=== PATIENT | male | born 1980 ===

== ENCOUNTER 2022-02-15 17:40 | Observation (INO) | payer OTHER, SELFPAY ==
[2022-02-15] VITALS (43 sets, daily range): BP systolic 105–169; BP diastolic 76–123; PULSE 75–131; RESP 11–30; TEMP 36.6; O2SAT 95–100
--- NOTE | ~2022-02-15 | XR_ITS ---
EXAMINATION: XR surgery orthopedic DATE: 02/16/2022 20:43 INDICATION: Trimalleolar ankle fracture. TECHNIQUE: 5 intraoperative fluoroscopic views of left ankle were obtained. I was not present. Fluoro scopy exposure time was 28 seconds. COMPARISON: Left ankle radiographs 02/15/2022 FINDINGS: There is an oblique fracture of distal fibula status post open reduction internal fixation with plate and screws. There is a lag screw in medial malleolus. Again seen is a fracture of posterio r malleolus in near-anatomic alignment. IMPRESSION: 1. Trimalleolar ankle fracture status post open reduction internal fixation. Reviewed, dictated and finalized at location A. KITTER
--- NOTE | ~2022-02-15 | XR_ITS ---
EXAM: XR ankle LT 2V DATE: 02/15/2022 20:29 HISTORY: post reduction . COMPARISON: Same date at 6:02 PM. FINDINGS/IMPRESSION: Improved alignment of the tibiotalar dislocation with only mild residual medial joint space widening. Near-anatomic alignment of the distal fibular and medial malleolar fractures. L ikely posterior malleolar fracture which was not evident in the prior study, making this a trimalleol ar fracture. Reviewed, dictated and finalized at location K. LEDGE MANAGEMENT ADVISOR
--- NOTE | ~2022-02-15 | XR_ITS ---
CORRECTED REPORT This report was recreated on 02/16/2022. Original report was ROAD SIGNAL OPERATOR. 02/16/2022 sef Changed to XR ankle LT 2V EXAM: XR ankle LT 2V DATE: 02/15/2022 18:06 HISTORY: left ankle deformity, DROPPED 11,000LB MACHINE ON ANKLE . COMPARISON: None available. FINDINGS: Transverse distracted and posteriorly displaced medial malleolar fracture. Oblique distal left fibular fracture roughly at the level of the joint line, with lateral and posterior angulation. One half shaft width lateral and posterior dislocation of the talus relative to the tibial plafond. Achilles and plantar enthesopathy. IMPRESSION: Displaced/angulated bimalleolar left ankle fractures with tibiotalar dislocation. Reviewed, dictated and finalized at location K. ROAD SIGNAL OPERATOR MTDD IMPRESSION: Displaced/angulated bimalleolar left ankle fractures with tibiotala r dislocation.
--- NOTE | 2022-02-15 18:39 | ED.LOWEXIN ---
HPI - Extremity Injury (Lower) General Chief Complaint: Extremity Injury, Lower Stated Complaint: L ANKLE DEFORMITY Time Seen by Provider: 02/15/22 18:01 History of Present Illness HPI Narrative: Pt is a 41 yo M presenting with a left ankle injury. 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 Pt accidentally rolled over his left foot with the sprayer with immediate deformity to left ankle. Pt admits to having several beers this afternoon. Denies striking his head or further injury. Denies numbness. Related Data Allergies Allergy/AdvReac Type Severity Reaction Status Date / Time No Known Allergies Allergy Verified 02/22/22 10:04 Review of Systems Review of Systems: All systems reviewed & are unremarkable except as noted in HPI and below PMFSH Past Medical History Medical History Closed trimalleolar fracture of left ankle Family History Family History Sibling Asthma Social History Social History Smoking packs per day: 1 Smoking cigarettes per day: 20.0 Years smoked: 25 Smoking pack-years: 25.00 Smoking status: Heavy tobacco smoker Tobacco type: cigarettes Second hand tobacco smoke exposure: No Alcohol intake: current Substance use: current Substance use type: marijuana Lack of Transportation: No Lack of Food: Never True Current Housing: I Have Housing Concerned About Future Housing: No Difficulty Paying Gas/Electric Bills: No Difficulty Paying for Meds: No Currently Unemployed: No Education: High School Diploma/GED Difficulty w/ Childcare or Family Care: No Spiritual care concerns: No Exam Narrative: GENERAL: Intoxicated male, cooperative HEAD: Normocephalic, atraumatic. EYES: PERRLA and EOMI. ENT: Nares clear, no rhinorrhea or epistaxis. Mucous membranes moist. NECK: Supple. CHEST: Clear to auscultation. No respiratory distress. HEART: Regular rate and rhythm. No murmur heard. Normal peripheral pulses. ABDOMEN: Soft, nontender, nondistended, normal active bowel sounds. EXTREMITIES: Obvious deformity of the left ankle, DP and PT pulses are 2+, no sensory deficits SKIN: Warm, dry, no rash. NEURO: No focal deficits. Alert and oriented x3. PSYCH: Normal mood and affect. Course Vital Signs Vital signs: Vital Signs Pulse Rate 96 02/15/22 17:52 Respiratory Rate 14 02/15/22 17:52 Blood Pressure 136/87 02/15/22 17:52 Pulse Oximetry 98 02/15/22 17:52 Temperature 97.8 F 02/17/22 10:00 Pulse Rate 98 02/17/22 10:00 Respiratory Rate 18 02/17/22 10:00 Blood Pressure 144/88 H 02/17/22 10:00 Pulse Oximetry 98 02/17/22 10:00 Oxygen Delivery Room Air 02/17/22 08:49 Oxygen Flow Rate 8 02/16/22 21:15 Procedures Orthopedic Joint Reduction Joint #1: Orthopedic Joint Reduction Date: 02/15/22 Side: left Joint Reduction Location: ankle Analgesia: procedural sedation Pre-Procedure Neuro Vascular Exam: normal Technique used: traction/counter-traction and direct manipulation Post-reduction neuro exam: intact Post-reduction vascular: intact Post Reduction X-Ray Obtained: Yes Post Reduction X-Ray Results: reduced Splint Applied: Yes Patient Tolerated Procedure: well Additional Comments: Fracture/joint reduction of unstable trimalleolar fx with posterior tibiotalar dislocation. Neurovascularly intact s/p reduction, splint applied. Tolerated without complication. Procedural Sedation Procedural Sedation #1: Procedural Sedation Date: 02/15/22 Provider Performed: sedation and procedure Informed Consent Obtained: yes Equipment in Room: bag and mask, capnography, property assessment monitor, crash cart, oxygen, pulse oximeter and suction Plan for Sedation:
[2022-02-15 18:52] LABS: Basophils Percent Auto 0.6 % (0.2-1.2); Eosinophils Percent Auto 0.9 % (0-4.4); Hematocrit 40.8 % (42.0-52.0); Hemoglobin 13.7 g/dL (14.0-18.0); Immature Granulocyte Absolute 0.02 K/mm3 (0.00-0.031); Immature Granulocyte Percent A 0.6 % (0-0.5); Immature Platelet Fraction Pct 9.8 % (0.9-11.2); Lymphocytes Absolute Auto 2.04 K/mm3 (0.9-3.2); Mean Corpuscular HGB Conc 33.6 g/dl (32-36); Mean Corpuscular Hemoglobin 35.7 pg (26-34); Mean Corpuscular Volume 106.3 fl (80-100); Mean Platelet Volume 10.4 fl (7.4-10.4); Monocytes Absolute Auto 0.7 K/mm3 (0.1-0.6); Monocytes Percent Auto 19.4 % (2.6-8.5); Neutrophils Absolute Auto 0.6 K/mm3 (1.3-6.7); Neutrophils Percent Auto 18.5 % (45.5-73.1); Platelet Count Result 137 k/mm3 (150-375); Red Blood Count 3.84 M/mm3 (4.6-6.20); Red Cell Distribution Width 12.6 % (11.5-14.5); White Blood Count 3.4 K/mm3 (4.5-10.0)
[2022-02-15 19:03] LABS: Anion Gap 13 mmol/L (8-16); Blood Urea Nitrogen 9 mg/dL (9-20); Calcium 9.2 mg/dL (8.4-10.2); Carbon Dioxide 29 mmol/L (22-30); Chloride 101 mmol/L (98-107); Estimated CRCL calculation 98 ml/min; Estimated Glomerular Filt Rate > 60; Glucose 101 mg/dL (65-110); Potassium 3.9 mmol/L (3.4-5.0); Sodium 143 mmol/L (137-145)
[2022-02-15 19:05] LABS: Macrocytosis 1+ (NORMAL); Platelet Estimate Adequate (Adequate)
[2022-02-15 19:06] LABS: Atypical Lymphocytes Present; Ovalocytes 1+ (NORMAL); Schistocytes None Seen (NORMAL)
[2022-02-15 19:23] LABS: Ethanol 449 mg/dL (<10)
[2022-02-15] MEDS: KETAMINE HCL (*CRX) 500 MG/10 ML VIAL 100 MG IV PUSH (20:11)
--- NOTE | 2022-02-15 21:47 | PM.IMHP ---
H&P: HPI History of Present Illness Date/Time: 02/15/22 21:47 Chief Complaint: ANKLE PAIN Narrative: This is a 41-year-old male with past medical history significant for tobacco dependence, alcohol dependence, patient smokes 1 pack to pack and half a day, drinks a pt of vodka daily. Patient was at his job when he had a heavy object fall on his foot in emergency room patient was found to have left ankle fracture. Patient had his fracture reduced and is been placed in observation. Preliminary workup was significant for an alcohol level of 449, x-ray of the left ankle was reported as: FINDINGS:? Transverse distracted and posteriorly displaced medial malleolar fracture. Oblique distal left fibular fracture roughly at the level of the joint line, with lateral and posterior angulation. One half shaft width lateral and posterior dislocation of the talus relative to the tibial plafond. Achilles and plantar enthesopathy. IMPRESSION: Displaced/angulated bimalleolar left ankle fractures with tibiotalar dislocation. Review of Systems Review of Systems: Left ankle fracture Constitutional: Constitutional: Denies chills, Denies fever(s), Denies malaise, Denies night sweats, Denies poor appetite and Denies weakness Eyes: Eyes: Denies change in vision ENT: Denies dysphagia, Denies vertigo, Denies dizziness and Denies odynophagia Respiratory: Respiratory: Denies chest congestion, Denies cough, Denies dyspnea on exertion and Denies wheezing Gastrointestinal: Gastrointestinal: Denies abdominal pain, Denies dyspepsia, Denies heartburn, Denies diarrhea, Denies nausea and Denies vomiting Genitourinary: Genitourinary: Denies dysuria Musculoskeletal: Musculoskeletal: Reports abnormal gait, Reports deformity, Reports arthralgias, Reports joint swelling, Reports limited range of motion and Reports other (Left ankle) Integumentary/Breasts: Skin/Breast: Denies rash Neurologic: Denies vertigo, Denies dizziness, Denies focal weakness and Denies Sensory deficit (Neuro) Psychiatric: Psychiatric: Reports no additional psychiatric complaints, Reports as per HPI and Denies tactile hallucinations Endocrine: Endocrine: Denies cold intolerance, Denies fatigue, Denies flushing, Denies heat intolerance, Denies polyphagia, Denies polydipsia and Denies palpitations Hematologic/Lymphatic: Hematologic/Lymphatic: Reports no additional hematologic/lymphatic complaints and Reports as per HPI Allergic/Immunologic: Allergic/Immunologic: Reports no additional allergic/immunologic complaints and Reports as per HPI [facility] Social History Social History Smoking status: Current every day smoker Alcohol intake: current Meds Home Medications and Allergies Home Medications Medication Instructions Recorded Confirmed Type No Home Medications 02/16/22 02/16/22 History Allergies Allergy/AdvReac Type Severity Reaction Status Date / Time No Known Allergies Allergy Verified 02/15/22 21:04 Vital Signs Vital Signs - 24 hr 02/15/22 17:58 02/15/22 17:52 02/15/22 17:53 Temperature 97.8 F Pulse Rate 110 H 96 98 Pulse Rate [Right] Respiratory Rate 24 H 14 20 Blood Pressure 133/97 H 136/87 Blood Pressure [Right Arm] Pulse Oximetry 98 98 Oxygen Delivery Room Air Oxygen Flow Rate 02/15/22 18:00 02/15/22 20:12 02/15/22 20:16 Temperature Pulse Rate 99 Pulse Rate [Right] 130 H Respiratory Rate 16 12 17 Blood Pressure Blood Pressure [Right Arm] 125/105 H 118/89 Pulse Oximetry 98 100 98 Oxygen Delivery Nasal Cannula Nasal Cannula Oxygen Flow Rate 2 2 02/15/22 20:08 Temperature Pulse Rate Pulse Rate [Right] 87 Respiratory Rate 20 Blood Pressure Blood Pressure [Right Arm] Pulse Oximetry 100 Oxygen Delivery Room Air Oxygen Flow Rate Exam Narrative: Left leg cast in place Const: General: comfortable, no acute distress, well developed, alert, awake and average body habitus Nutritional Appearance: aver
[2022-02-15 23:19] LABS: Influenza A QL RT-PCR Negative (Negative); Influenza B QL RT-PCR Negative (Negative); RSV RNA, RT-PCR Negative (Negative); SARS-CoV-2 RNA PCR Negative
[2022-02-16] VITALS (26 sets, daily range): BP systolic 105–137; BP diastolic 63–88; PULSE 68–89; RESP 11–20; TEMP 36.2–38.1; O2SAT 95–100; BMI 21.8
[2022-02-16] MEDS: HYDROmorphone HCL INJ (*CRX) 1 MG/ML SYR IV PUSH ×5 (03:00→17:16)
[2022-02-16] MEDS: LORazepam INJ (*CRX) 2 MG/ML VIAL IV PUSH ×2 (03:06→18:13)
[2022-02-16] MEDS: THIAMINE HCL INJ 100 MG, FOLIC ACID INJ 1 MG, MULTIVITAMINS-12 INJ VIAL 1 5 ML, MULTIVI... 125 MG IV CONT (03:17)
--- NOTE | 2022-02-16 03:59 | PC.NURSE ---
Pt admitted to 324-2 via cart ( 0210) from ER after work related accident resulting in fx left tibia/ankle. 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 Pt was positive for etoh in symptom. Pt states drinks almost a fifth of vodka a day. Smokes cigarettes daily and weed occasionally. Hx of diverticulosis resulting in colostomy- 09/2017 then takedown 05/2018. Hx of suicide attempt 1 year ago. Went to rehab for etoh x1 sober x9 months Takes no meds. Lives with spouse in house. Pain 9/10 Anxious and restless. IVF started and given ativan and dilaudid NPO for surgery in am. Bed alarm on fall precautions
[2022-02-16] MEDS: chlordiazePOXIDE (*CRX) 25 MG CAPSULE 50 MG PO ×4 (05:58→23:59)
[2022-02-16] MEDS: ACETAMINOPHEN 500 MG TABLET 1000 MG PO ×2 (05:59→18:35)
--- NOTE | 2022-02-16 06:47 | PM.CNOR ---
Assessment and Plan Assessment and plan (1) Closed trimalleolar fracture of left ankle: Code(s): S82.852A - Displaced trimalleolar fracture of left lower leg, initial encounter for closed fracture Status: Acute Assessment and Plan: New patient evaluation for chief complaint left ankle injury. History, physical exam and radiographs reviewed with the patient. Left ankle trimalleolar fracture dislocation. Reduced and splinted in the emergency room. Post reduction radiographs show ankle well reduced. Discussed the condition, nature, etiology and course of natural history with the patient. Treatment options including surgical and nonoperative treatment were reviewed. Risks and benefits of each as well as alternatives reviewed. The patient's questions were answered. Conservative treatment ice, compression and elevation. Discussed surgical option when medically stable. Discussed nonoperative and operative treatment options with the patient. Risks and benefits of each as well as alternatives were reviewed. All of the patient's questions were answered. The risks of surgery reviewed including but not limited to: Neurovascular damage, wound complication, infection, blood clot, pulmonary embolus, stroke, myocardial infarction, and anesthetic risks up to and including . Continued pain and possible dysfunction were explained. Specific risks of the procedure including later recurrence of deformity. No guarantees were offered. If hardware used, discussed risk of failure/ breakage and possible need for removal. If complications occur, the patient understands the need for further treatment, possible further surgery. Patient verbalizes understanding and wishes to proceed. PLAN: Open reduction internal fixation left ankle fracture. History of Present Illness HPI Consult date: 02/16/22 Requesting physician: Emily Abbott MD Chief complaint: Left Ankle Fracture/Dislocation Narrative: 41-year-old male at work with injury when heavy object hit left ankle. Presented to emergency room with obvious deformity of the left ankle. Fracture dislocation noted on radiographs. Reduced and splinted in the emergency room and admitted for further care. No prior problems with the ankle. Review of Systems Constitutional: Constitutional: Denies fever(s) Eyes: Eyes: Denies blurry vision ENT: Reports Normal hearing present Cardiovascular: Cardiovascular: Denies chest pain and Denies dyspnea Respiratory: Respiratory: Denies dyspnea and Denies wheezing Gastrointestinal: Gastrointestinal: Denies abdominal pain Genitourinary: Genitourinary: Denies urinary urgency Musculoskeletal: Musculoskeletal: Reports as per HPI and Denies numbness Integumentary/Breasts: Skin/Breast: Denies changing lesions and Denies sores Neurologic: Reports Normal hearing present, Denies behavioral changes, Denies confusion, Denies numbness and Denies convulsions Psychiatric: Psychiatric: Denies behavioral changes, Denies confusion and Denies hallucinations Endocrine: Endocrine: Denies heat intolerance Hematologic/Lymphatic: Hematologic/Lymphatic: Denies easy bleeding Allergic/Immunologic: Allergic/Immunologic: Denies wheezing PMFSH Past Medical History Medical History (Updated 02/16/22 @ 06:49 by Reilly Gandhi MD) Closed trimalleolar fracture of left ankle Family History Family History Sibling Asthma Social History Social History Smoking packs per day: 1 Smoking cigarettes per day: 20.0 Years smoked: 25 Smoking pack-years: 25.00 Smoking status: Heavy tobacco smoker Tobacco type: cigarettes Second hand tobacco smoke exposure: No Alcohol intake: current Substance use: current Substance use type: marijuana Lack of Transportation: No Lack of Food: Never True Current Housing: I Have Housing Concer
[2022-02-16 07:07] LABS: Glucose Point of Care 96 mg/dl (65-105)
[2022-02-16 12:00] LABS: Glucose Point of Care 71 mg/dl (65-105)
--- NOTE | 2022-02-16 13:06 | PM.IMPN ---
Progress Note: A&P Assessment and Plan (1) Ankle fracture: Code(s): S82.899A - Other fracture of unspecified lower leg, initial encounter for closed fracture Status: Acute Assessment and Plan: Status post reduction Admit to regular medical floor Pain management Orthopedic surgery consult (2) Alcohol intoxication: Code(s): F10.929 - Alcohol use, unspecified with intoxication, unspecified Status: Acute Assessment and Plan: CIWA protocol as needed (3) Alcohol dependence: Code(s): F10.20 - Alcohol dependence, uncomplicated Status: Acute Assessment and Plan: CIWA protocol as needed (4) Tobacco dependence: Code(s): F17.200 - Nicotine dependence, unspecified, uncomplicated Status: Acute Assessment and Plan: Nicotine patch as needed Subjective Date/time seen: 02/16/22 13:06 No complaints Exam Narrative: Left leg cast in place Const: General: comfortable, no acute distress, well developed, alert, awake and average body habitus Nutritional Appearance: average body habitus Orientation/consciousness: patient oriented x3 HENMT: Head: normal to inspection, normocephalic and atraumatic Ears: hearing grossly normal bilaterally Face/Nose/Sinus: normal facial exam Face and sinus: normal facial exam Eyes: General: appearance normal, both eyes and all related structures Pupils: Equal, round and reactive pupils present EOM: EOMs intact bilaterally Neck: Neck: full ROM, no lymphadenopathy and no JVD Thyroid: thyroid normal Lymphatic: no lymphadenopathy noted Resp: Effort & Inspection: normal respiratory effort and able to speak in complete sentences Auscultation: clear to auscultation bilaterally Cardio: Jugular venous distension: no JVD Rate: regular rate Rhythm: regular rhythm Heart sounds: S1 normal heart sound present and S2 normal heart sound present : General: Yes deferred Skin: Rashes: no rashes Wounds: no wounds Neuro: General: patient oriented x3, CN's II-XI intact bilaterally and Unable to assess gait Cranial nerves: Yes CN's II-XII intact bilaterally and Yes Equal, round and reactive pupils present Cognition (Neuro): normal cognition Speech: normal speech Gait exam (Neuro): Unable to assess gait Motor exam (neuro): 5/5 motor strength present throughout Sensory Exam: No Sensory deficit (Neuro) Extrem: General: normal to inspection, full ROM, no joint enlargement and no pedal edema Objective Data Vital Signs Vital Signs: Vital Signs - 24 hr 02/15/22 17:58 02/15/22 17:52 02/15/22 17:53 Temperature 97.8 F Pulse Rate 110 H 96 98 Pulse Rate [Radial] Pulse Rate [Right] Respiratory Rate 24 H 14 20 Blood Pressure 133/97 H 136/87 Blood Pressure [Right Arm] Pulse Oximetry 98 98 Oxygen Delivery Room Air Oxygen Flow Rate 02/15/22 18:00 02/15/22 20:12 02/15/22 20:16 Temperature Pulse Rate 99 Pulse Rate [Radial] Pulse Rate [Right] 130 H Respiratory Rate 16 12 17 Blood Pressure Blood Pressure [Right Arm] 125/105 H 118/89 Pulse Oximetry 98 100 98 Oxygen Delivery Nasal Cannula Nasal Cannula Oxygen Flow Rate 2 2 02/15/22 20:08 02/15/22 19:14 02/15/22 19:15 Temperature Pulse Rate 96 98 Pulse Rate [Radial] Pulse Rate [Right] 87 Respiratory Rate 20 16 17 Blood Pressure Blood Pressure [Right Arm] Pulse Oximetry 100 100 Oxygen Delivery Room Air Oxygen Flow Rate 02/15/22 19:17 02/15/22 19:30 02/15/22 19:46 Temperature Pulse Rate 95 101 H 97 Pulse Rate [Radial] Pulse Rate [Right] Respiratory Rate 16 15 22 H Blood Pressure 138/84 Blood Pressure [Right Arm] Pulse Oximetry 97 99 Oxygen Delivery Oxygen Flow Rate 02/15/22 20:01 02/15/22 20:06 02/15/22 20:11 Temperature Pulse Rate 107 H 91 90 Pulse Rate [Radial] Pulse Rate [Right] Respiratory Rate 18 11 L 12 Blood Pressure 127/89 125/105 H Blood Pressure [Right Arm] Pul
--- NOTE | 2022-02-16 15:10 | WPDHPUPDATE1 ---
History and Physical Update Update Date/Time: 02/16/22 15:10 History and Physical has been reviewed, including an updated exam of the patient. There are NO changes in the patient's condition. Risks, benefits, and alternatives have been discussed and questions answered. Patient agrees to proceed with procedure.
[2022-02-16 17:50] LABS: Glucose Point of Care 79 mg/dl (65-105)
[2022-02-16] MEDS: LACTATED RINGERS 1,000 ML 30 ML IV CONT ×2 (18:30→20:48)
[2022-02-16] MEDS: KETOROLAC 15 MG/ML VIAL (*BKC) IV PUSH (18:35)
--- NOTE | 2022-02-16 18:53 | WPDANESEPPF ---
Anes - Initial Pre Proc Eval Procedure: Operation Date: 02/16/22 20:30 Proposed Procedures p Open Reduction Internal Fixation Left Ankle - Reilly Gandhi MD Date/Time: 02/16/22 18:53 Surgeon: Cheyanne Myers MD Pre Op Diagnosis: Left Ankle Fracture/Dislocation Patient Data Age: 41 Gender: M Height: 1.8 m Weight: 71 kg Last Vital Signs Temp 38.1 C H 02/16/22 18:30 Pulse 89 02/16/22 18:30 Resp 18 02/16/22 18:30 BP 137/83 02/16/22 18:30 Pulse Ox 98 02/16/22 18:30 O2 Del Method Room Air 02/16/22 18:30 O2 Flow Rate 1 02/15/22 20:26 Allergies Allergy/AdvReac Type Severity Reaction Status Date / Time No Known Allergies Allergy Verified 02/15/22 21:04 Home Medications Medication Instructions Recorded Confirmed Type No Home Medications 02/16/22 02/16/22 History Laboratory Tests 02/15/22 02/15/22 02/15/22 18:39 18:39 18:39 WBC 3.4 K/mm3 L K/mm3 (4.5-10.0) RBC 3.84 M/mm3 L M/mm3 (4.6-6.20) Hgb 13.7 g/dL L g/dL (14.0-18.0) Hct 40.8 % L % (42.0-52.0) MCV 106.3 fl H fl (80-100) MCH 35.7 pg H pg (26-34) MCHC 33.6 g/dl g/dl (32-36) RDW 12.6 % % (11.5-14.5) Plt Count 137 k/mm3 L k/mm3 (150-375) MPV 10.4 fl fl (7.4-10.4) Immature Gran % (Auto) 0.6 % H % (0-0.5) Neut % (Auto) 18.5 % L % (45.5-73.1) Lymph % (Auto) 60.0 % H % (18.3-44.2) Harmon % (Auto) 19.4 % H % (2.6-8.5) Eos % (Auto) 0.9 % % (0-4.4) Baso % (Auto) 0.6 % % (0.2-1.2) Lymph # (Auto) 2.04 K/mm3 K/mm3 (0.9-3.2) Harmon # (Auto) 0.7 K/mm3 H K/mm3 (0.1-0.6) Eos # (Auto) 0.0 K/mm3 K/mm3 (0-0.3) Baso # (Auto) 0.0 K/mm3 K/mm3 (0.0-0.1) Abs Immat Gran (auto) 0.02 K/mm3 K/mm3 (0.00-0.031) Absolute Neuts (auto) 0.6 K/mm3 L K/mm3 (1.3-6.7) Absolute Nucleated RBC 0.0 K/mm3 K/mm3 (0.0-0.012) Nucleated RBC % 0.0 % % (0.0-0.2) Atypical Lymphocytes Present Platelet Estimate Adequate (Adequate) % Immature Plt Fraction 9.8 % % (0.9-11.2) Macrocytosis 1+ (NORMAL) Ovalocytes 1+ (NORMAL) Schistocytes None seen (NORMAL) Sodium 143 mmol/L mmol/L (137-145) Potassium 3.9 mmol/L mmol/L (3.4-5.0) Chloride 101 mmol/L mmol/L (98-107) Carbon Dioxide 29 mmol/L mmol/L (22-30) Anion Gap 13 mmol/L mmol/L (8-16) BUN 9 mg/dL mg/dL (9-20) Creatinine 0.90 mg/dL mg/dL (0.7-1.3) Estim Creat Clear Calc 98 ml/min ml/min Estimated GFR > 60 (59 - ) Glucose 101 mg/dL mg/dL (65-110) POC Capillary Glucose Calcium 9.2 mg/dL mg/dL (8.4-10.2) Ethyl Alcohol 449 mg/dL H* mg/dL (<10) Influenza A (RT-PCR) Influenza B (RT-PCR) RSV (RT-PCR) SARS-CoV-2 RNA (RT-PCR) 02/15/22 02/16/22 02/16/22 22:38 07:04 11:49 WBC RBC Hgb Hct MCV MCH MCHC RDW Plt Count MPV Immature Gran % (Auto) Neut % (Auto) Lymph % (Auto) Harmon % (Auto) Eos % (Auto) Baso % (Auto) Lymph # (Auto) Harmon # (Auto) Eos # (Auto) Baso # (Auto) Abs Immat Gran (auto) Absolute Neuts (auto) Absolute Nucleated RBC Nucleated RBC % Atypical Lymphocytes Platelet Estimate % Immature Plt Fraction Macrocytosis Ovalocytes Schistocytes Sodium Potassium Chloride
[2022-02-16] MEDS: ceFAZolin 2 GM/D5W 50 ML 2 GM/50 ML BAG IVPB (19:33)
[2022-02-16] MEDS: BUPIVACAINE/EPINEPHRINE 0.5% 10 ML VIAL 30 ML INFILTRATE (19:55)
--- NOTE | 2022-02-16 20:59 | W.PM.PROC2 ---
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 Initially seen in the emergency room and underwent closed reduction and splinting. Fracture noted to be unstable. Patient presents for operative treatment. Received medical stabilization. Findings Medial lateral malleolus fractures with instability of ankle mortise. Posterior malleolus fracture, less than 15% of joint and stable. Description of Procedure After informed consent, the operative extremity was marked in the preoperative holding area. Patient received intravenous antibiotics. Patient was then taken to the operating room and underwent general anesthesia by the anesthesia team. Positioned supine on the operating room table with a soft bump under the ipsilateral hip. A time-out was performed confirming the patient, site of the surgery, operative plan. Lower extremity then prepped and draped in the usual sterile surgical fashion using ChloraPrep skin solution. Foot and ankle exsanguinated and a thigh tourniquet inflated to 250 mmHg. Longitudinal incision made over the lateral ankle distal fibula with a 15 blade knife. Hemostasis controlled with electrocautery. Full-thickness soft tissue flaps developed and the fascia was incised in line with the skin incision. Fracture identified and cleared with a dental pick, irrigation and rongeur. Fracture reduced and held with bone-holding clamp. Image intensification confirmed reduction of the fracture and the ankle mortise. Fixation achieved with a 3.5 millimeter fully-threaded cortical screw placed in lag technique across the fracture. Neutralization with a lateral plate with unicortical screws distal to fracture and bicortical screws proximal to the fracture. Good alignment and stability of the fracture noted. Image intensification used to confirm reduction of the fracture and placement of the hardware. Medial side then addressed. Longitudinal incision made with a 15 blade knife over the medial malleolus fracture. Hemostasis controlled with electrocautery. Fascia incised in line with skin incision. Periosteum cleared from the medial malleolus fracture. Medial side of the joint inspected and noted to have mild amount of trauma to the chondral surface. Thorough irrigation of the ankle joint and suctioned out. Fracture reduced and provisionally pinned. Fixation achieved with 4.0 mm partially threaded cancellous screw placed in cannulated screw fashion. Image intensification confirmed reduction of the fracture and placement of the hardware. Stress of the ankle performed with good stability of the ankle mortise in all directions. Posterior malleolus noted to be reduced and stable. Wounds thoroughly irrigated with antibiotic solution. Fascia repaired with 00 Vicryl interrupted suture. Subcutaneous tissue repaired with 000 Monocryl interrupted suture and skin approximated with milly. Sterile dressings applied followed by bulky dressing and splint. Patient awoken from anesthesia, extubated and taken to the recovery room in stable condition. All sponge, needle and instrument counts correct at the end of the case. Palpable dorsalis pedis pulse noted prior to dressing. Implants Arthrex distal fibula locking plate. 4.0 mm cannulated screw medially. Estimated Blood Loss 20 Tourniquet Time 60 Urine Output 300 Drains No Packing No Pathology None sent Complications None Condition Stable Disposition PACU [facility] Billing Surgery - Charge Forward: Surgery Billing ([id number])
--- NOTE | 2022-02-16 21:20 | SUR.PHASEI ---
2119: Simple mask removed.
--- NOTE | 2022-02-16 22:05 | PC.NURSE ---
back from surgery per bed to room 321-2
[2022-02-17] MEDS: KETOROLAC 15 MG/ML VIAL (*BKC) IM ×3 (00:01→12:39)
[2022-02-17 02:54] LABS: Glucose Point of Care 112 mg/dl (65-105)
[2022-02-17 03:41] VITALS: BP 153/80; PULSE 80; RESP 20; TEMP 36.4; O2SAT 98
[2022-02-17 05:18] VITALS: O2SAT 97
[2022-02-17] MEDS: chlordiazePOXIDE (*CRX) 25 MG CAPSULE 50 MG PO ×2 (05:55→12:39)
[2022-02-17] MEDS: polyethylene glycoL 3350 17 GM POWD.PACK PO (08:30)
[2022-02-17] MEDS: SENNA/DOCUSATE SODIUM TABLET 2 TAB PO (08:30)
[2022-02-17] MEDS: HYDROcodone/acetaminophen (*CRX) 7.5-325 MG TABLET 1 TAB PO (08:33)
--- NOTE | 2022-02-17 08:44 | PM.PNORT ---
Progress Note: A&P Assessment and Plan (1) Closed trimalleolar fracture of left ankle: Qualifiers: Encounter type: subsequent encounter Fracture healing: with routine healing Qualified Code(s): S82.852D - Displaced trimalleolar fracture of left lower leg, subsequent encounter for closed fracture with routine healing Code(s): S82.852A - Displaced trimalleolar fracture of left lower leg, initial encounter for closed fracture Status: Acute Assessment and Plan: Postoperative day 1 ORIF left ankle. Splint in place. Patient appears comfortable. PT/OT with nonweightbearing left leg. Pain control. Disposition home when medically stable. Follow up next week in Orthopedic office. Subjective Subjective Date/Time Seen: 02/17/22 08:44 Post Op day: 1 Principal diagnosis: left ankle fracture Interval history: status post open reduction internal fixation left ankle fracture. Patient resting comfortably. No complaints overnight. Exam Const: General: comfortable; No acute distress Resp: Effort & Inspection: normal respiratory effort and no audible wheezes Extrem: Right lower extremity: lower leg ( Negative Homans sign), ankle Details: normal ROM ( dorsiflexion and plantar flexion intact) and foot Details: vascular exam Details: dorsalis pedis pulse present and normal capillary refill, tendon exam Details: active flexion normal and active extension normal and motor-sensory exam Details: light-touch normal Location: in all toes; no edema Left lower extremity: foot Details: vascular exam Details: dorsalis pedis pulse present and normal capillary refill and motor-sensory exam light-touch normal in all toes; no edema Other: Splint in place left ankle. Able to move toes. Good capillary refill and sensation. Objective Data Vital Signs Vital Signs: Vital Signs - 24 hr 02/16/22 10:39 02/16/22 13:51 02/16/22 16:00 Temperature 98.2 F Pulse Rate 82 Pulse Rate [Radial] 72 Respiratory Rate 20 Blood Pressure 133/79 Pulse Oximetry 96 95 Oxygen Delivery Room Air Oxygen Flow Rate 02/16/22 18:30 02/16/22 20:48 02/16/22 21:00 Temperature 100.5 F H 99.1 F Pulse Rate 89 80 78 Pulse Rate [Radial] Respiratory Rate 18 14 17 Blood Pressure 137/83 125/81 118/79 Pulse Oximetry 98 100 100 Oxygen Delivery Room Air Simple Face Mask Simple Face Mask Oxygen Flow Rate 8 8 02/16/22 21:15 02/16/22 21:30 02/16/22 21:45 Temperature Pulse Rate 80 82 84 Pulse Rate [Radial] Respiratory Rate 16 17 17 Blood Pressure 130/76 124/73 132/69 Pulse Oximetry 100 96 96 Oxygen Delivery Simple Face Mask Room Air Room Air Oxygen Flow Rate 8 02/16/22 20:00 02/16/22 21:56 02/16/22 22:11 Temperature 98.2 F 98.2 F Pulse Rate 74 74 71 Pulse Rate [Radial] Respiratory Rate 20 20 20 Blood Pressure 124/69 119/65 Pulse Oximetry 97 97 97 Oxygen Delivery Room Air Oxygen Flow Rate 02/16/22 22:41 02/16/22 23:41 02/17/22 05:18 Temperature 98.1 F 98.2 F Pulse Rate 68 71 Pulse Rate [Radial] Respiratory Rate 18 18 Blood Pressure 121/70 116/63 Pulse Oximetry 97 98 97 Oxygen Delivery Room Air Oxygen Flow Rate 02/17/22 03:41 Temperature 97.6 F Pulse Rate 80 Pulse Rate [Radial] Respiratory Rate 20 Blood Pressure 153/80 H Pulse Oximetry 98 Oxygen Delivery Oxygen Flow Rate Intake/Output Intake/Output: Intake & Output 02/14/22 02/15/22 02/16/22 02/17/22 23:59 23:59 23:59 23:59 Intake Total 580 Output Total 1200 Balance -620 Meds/Results Medications: Active Medications Generic Name Dose Route Start Last Admin Trade Name Freq PRN Reason Stop Dose Admin Acetaminophen 1,000 mg 02/16/22 02:32 02/16/22 05:59 Acetaminophen 500 Mg Tablet PO 1,000 mg Q6H PRN Administration Mild Pain (1-3) or Fever Acetaminophen 650 mg 02/16/22 21:56 Acetaminophen 325 Mg Tablet PO Q6H PRN Pain Rated 1-3 Hydrocodone B
[2022-02-17 10:00] VITALS: BP 144/88; PULSE 98; RESP 18; TEMP 36.6; O2SAT 98
--- NOTE | 2022-02-17 11:09 | WPDANESPN ---
Anes - Prog Note Post-Op Date/Time: 02/17/22 11:09 Cardiovascular status: normal Respiratory status: normal Airway patency: baseline Mental status: baseline Post-Op hydration status: normal Vital Signs: Last Vital Signs Temp 36.6 C 02/17/22 10:00 Pulse 98 02/17/22 10:00 Resp 18 02/17/22 10:00 BP 144/88 H 02/17/22 10:00 Pulse Ox 98 02/17/22 10:00 O2 Del Method Room Air 02/17/22 08:49 O2 Flow Rate 8 02/16/22 21:15 Pain Score (VAS): 07/29 I/O: Intake & Output 02/16/22 02/17/22 02/17/22 23:59 07:59 15:59 Intake Total 100 240 Output Total 600 Balance -500 240 Laboratory Tests 02/15/22 18:39 02/15/22 18:39 02/16/22 02/16/22 02/17/22 11:49 17:47 02:52 POC Capillary Glucose 71 79 112 H Post-procedural complaints: none Patient Feedback: Patient satisfied with anesthetic care.
--- NOTE | 2022-02-17 13:29 | PM.DS ---
DS: Admitting Diagnosis Discharge Date February 17, 2022 Admitting Diagnosis Ankle fracture DS: Discharge Diagnosis Discharge Diagnosis (1) Ankle fracture: Code(s): S82.899A - Other fracture of unspecified lower leg, initial encounter for closed fracture Status: Acute Assessment and Plan: Status post reduction Admit to regular medical floor Pain management Orthopedic surgery consult (2) Alcohol intoxication: Code(s): F10.929 - Alcohol use, unspecified with intoxication, unspecified Status: Acute Assessment and Plan: CIWA protocol as needed (3) Alcohol dependence: Code(s): F10.20 - Alcohol dependence, uncomplicated Status: Acute Assessment and Plan: CIWA protocol as needed (4) Tobacco dependence: Code(s): F17.200 - Nicotine dependence, unspecified, uncomplicated Status: Acute Assessment and Plan: Nicotine patch as needed DS: Summary Hospital Course Hospital Course: Admitted for ankle fracture status post repair. Also history of alcohol abuse will be sent home on Librium for about 10 days total. Follow-up primary care physician. Also follow up Ortho Time Spent with Patient Time attestation: Total time spent providing and/or coordinating discharge services: Exam Narrative: General: alert and oriented Psych: appropriate mood nad affect Eyes: PERRLA Neck: Trachea midline, no new lesions Skin: no changes Lungs: CTA Cardiac: Normal S1,S2, no MGR ABD: soft, nd, nt, nbs Ext: no new lesions, no cce Vasc: Pulses intact Const: General: comfortable, no acute distress, well developed, alert, awake and average body habitus Nutritional Appearance: average body habitus Orientation/consciousness: patient oriented x3 HENMT: Head: normal to inspection, normocephalic and atraumatic Ears: hearing grossly normal bilaterally Face/Nose/Sinus: normal facial exam Face and sinus: normal facial exam Eyes: General: appearance normal, both eyes and all related structures Pupils: Equal, round and reactive pupils present EOM: EOMs intact bilaterally Neck: Neck: full ROM, no lymphadenopathy and no JVD Thyroid: thyroid normal Lymphatic: no lymphadenopathy noted Resp: Effort & Inspection: normal respiratory effort and able to speak in complete sentences Auscultation: clear to auscultation bilaterally Cardio: Jugular venous distension: no JVD Rate: regular rate Rhythm: regular rhythm Heart sounds: S1 normal heart sound present and S2 normal heart sound present : General: Yes deferred Skin: Rashes: no rashes Wounds: no wounds Neuro: General: patient oriented x3, CN's II-XI intact bilaterally and Unable to assess gait Cranial nerves: Yes CN's II-XII intact bilaterally and Yes Equal, round and reactive pupils present Cognition (Neuro): normal cognition Speech: normal speech Gait exam (Neuro): Unable to assess gait Motor exam (neuro): 5/5 motor strength present throughout Sensory Exam: No Sensory deficit (Neuro) Extrem: General: normal to inspection, full ROM, no joint enlargement and no pedal edema DS: Data Data Completed and Pending Labs on day of discharge: Labs from last 24 hours 02/17/22 02/16/22 02:52 17:47 POC Capillary Glucose 112 H 79 Discharge Plan Discharge Attending physician on discharge: Sean Estes Consulting providers: Devaughn Holt Discharging Clinician: Sean Estes Patient Disposition: Home, Self-Care Activity: other - see discharge instructions Diet: as tolerated Discharge Instructions: DEVAUGHN HOLT [facility] [address] [place] [address] [address] [place] [address] POST OPERATIVE DISCHARGE INSTRUCTIONS ANKLE SURGERY Elevate the involved extremity on pillows. For the first 72 hours, make sure that the foot is above the level of your heart. Carefully
[2022-02-17] MEDS: traMADol HCL (*CRX) 50 MG TABLET 100 MG PO (14:58)
== END 2022-02-17 15:35 | disposition home or self-care (01) ==
LOC: ANHED 19:58 → ANH3MEDSUR 02-16 01:08
PROVIDERS: Orthopaedic Surgery; Admitting Provider Internal Medicine; Emergency Provider Emergency Medicine; Visit Provider Chiropractor
PROC: (CPT 27822; principal; 2022-02-16 20:30)
DX: S82.852A Displaced trimalleolar fracture of left lower leg, initial encounter for closed fracture (principal); W31.82XA Contact with other commercial machinery, initial encounter; Z20.822 Contact with and (suspected) exposure to COVID-19; F10.229 Alcohol dependence with intoxication, unspecified; Y90.8 Blood alcohol level of 240 mg/100 ml or more; F17.210 Nicotine dependence, cigarettes, uncomplicated; F12.90 Cannabis use, unspecified, uncomplicated
CPT/HCPCS: 27822; 27767; 36415; 73600; 73610; 80048; 80307; 82948; 85025; 85055; 87637; 96374; 96375; 96376; 97116; 97161; 97166; 97530; 97535; 99199; 99285; A9270; C1713; C1769; G0378; J0690; J1100; J1170; J1885; J2060; J2250; J2405; J2704; J2710; J3010; J3411; J3475; J7030; J7120